=== PATIENT | male | born 1975 | race Caucasian/White ===

== ENCOUNTER 2016-11-04 19:15 | Emergency (ER) | payer SELFPAY ==
[2016-11-04 19:47] VITALS: BP 162/97
[2016-11-04] MEDS ORDERED: Azithromycin 250 MG Tab PO ONE (21:17)
--- NOTE | 2016-11-04 21:17 | EDM.PDOC ---
ED HISTORY OF PRESENT ILLNESS - General Chief Complaint: Respiratory Problem Stated Complaint: COUGH/CONGESTION Time Seen by Provider: 11/04/16 19:43 Source of Information: Reports: Patient - History of Present Illness INITIAL COMMENTS - FREE TEXT/NARRATIVE: 41 year old male with cough for about 4 days, worse the past 2 days, this evening got coughing so hard he "passed out". has had some chills, no definite fever. sore scratchy throat. Nasal and sinus kor[place] worse yesterday. Cough mostly dry but at time productive. Has had prior angiogram, "no blockage" He does not smoke. - Related Data Allergies/ADRs: Allergies Allergy/AdvReac Type Severity Reaction Status Date / Time cefuroxime axetil Allergy Cannot Verified 02/02/16 22:33 CDT [From Ceftin] Remember cephalexin Allergy Cannot Verified 02/02/16 22:03 CDT Remember Penicillins Allergy Cannot Verified 02/02/16 22:03 CDT Remember Past Medical History Cardiovascular History: Reports: Heart Failure, Hypertension Respiratory History: Reports: Sleep apnea Other Respiratory History: "Dx in 2010. Not treated because provider said it is not bad enough." Gastrointestinal History: Reports: GERD Genitourinary History: Reports: Renal calculus Musculoskeletal History: Reports: Arthritis Neurological History: Reports: Concussion, Migraines Other Neuro History: "I've had massive concussions before" - Infectious Disease History Infectious Disease History: Reports: Chicken pox - Past Surgical History Head Surgeries/Procedures: Reports: None HEENT Surgical History: Reports: Tonsillectomy Cardiovascular Surgical History: Reports: Other (see below) Other Cardiovascular Surgeries/Procedures: Angiogram done 11/23 Neurological Surgical History: Reports: None Musculoskeletal Surgical History: Reports: Shoulder surgery, Other (see below) Other Musculoskeletal Surgeries/Procedures:: bicept detatchment Social & Family History - Family History Cardiac: Reports: CAD, Hypertension, Pacemaker, Stent Other Cardiac Family History: Very strong family history of heart problems starting in the 30's for men in his family. Endocrine/Metabolic: Reports: Diabetes, type II - Tobacco Use Smoking Status *Q: Never Smoker Years of Tobacco use: 3 Packs/Tins Daily: 0.2 Used Tobacco, but Quit: Yes Month Tobacco Last Used: 1.5 Second Hand Smoke Exposure: No - Caffeine Use Caffeine Use: Reports: None - Recreational Drug Use Recreational Drug Use: No ED ROS GENERAL - Review of Systems Review Of Systems: See Below Constitutional: Denies: fever, chills, diaphoresis HEENT: Reports: Sinus problem (nasal and sinus korina. ), Throat pain Respiratory: Reports: Cough, Sputum. Denies: Shortness of Breath, Wheezing, Pleuritic Chest Pain Cardiovascular: Reports: Chest pain (with coughing) GI/Abdominal: Denies: Abdominal pain, Nausea, Vomiting Musculoskeletal: Reports: other (achiness) Skin: Denies: rash Neurological: Reports: Headache. Denies: Weakness ED EXAM, GENERAL - Physical Exam Exam: See Below General Appearance: alert, no apparent distress Eye Exam: bilateral eye: PERRL Nose: normal inspection Throat/Mouth: Normal inspection, Normal oropharynx Head: atraumatic. No: facial swelling Neck: supple, full range of motion. No: lymphadenopathy (L), lymphadenopathy (R ) Respiratory/Chest: no respiratory distress, lungs clear, normal breath sounds. No: rhonchi, wheezing, stridor Cardiovascular: tachycardia GI/Abdominal: soft, non tender Extremities: No: pedal edema, leg pain, increased warmth Neurological: alert, oriented, no motor/sensory deficits EKG INTERPRETATION EKG Date: 11/04/16 Rhythm: other (sinus tach) [place]: normal P-wave: present QRS: normal ST-T: normal Course - Vital Signs Last Recorded V/S: Last Vital Signs Temp 100.7 F H 11/04/16 19:37 Pulse 106 H 11/04/16 19:37 Resp 22 H 11/04/16 19:37 BP 162/97 H 11/04/16 19:37 Pulse Ox 96 11/04/16 19:37 - Orders/Labs/Meds Orders: Active Orders 24 hr Category Date Time Status EKG 12 Lead [EKG Documentation Completion] [RC] STAT Care 11/04/16 20:19 Active Chest 1V Frontal [CR] Stat Exams 11/04/16 20:18 Taken Labs: Laboratory Tests 11/04/16 11/04/16 Range/Units 19:48 19:48 WBC 7.93 (4.23-9.07) K/mm3 RBC 4.83 (4.63-6.08) M/mm3 Hgb 14.8 (13.7-17.5) gm/L Hct 41.7 (40.1-51.0) % MCV 86.3 (79.0-92.2) fl MCH 30.6 (25.7-32.2) pg MCHC 35.5 (32.2-35.5) g/dl RDW Std Deviation 38.0 (35.1-43.9) fL Plt Count 217 (163-337) K/mm3 MPV 10.0 (9.4-12.3) fl Neut % (Auto) 67.3 (34.0-67.9) % Lymph % (Auto) 22.7 (21.8-53.1) % [place] % (Auto) 6.8 (5.3-12.2) % Eos % (Auto) 2.4 (0.8-7.0) Baso % (Auto) 0.5 (0.1-1.2) % Neut # (Auto) 5.34 (1.78-5.38) K/mm3 Lymph # (Auto) 1.80 (1.32-3.57) K/mm3 [place] # (Auto) 0.54 (0.30-0.82) K/mm3 Eos # (Auto) 0.19 (0.04-0.54) K/mm3 Baso # (Auto) 0.04 (0.01-0.08) K/mm3 Troponin I < 0.017 (0.00-0.056) ng/mL Meds: Medications Discontinued Medications Generic Name Dose Route Start Last Admin Trade Name Freq PRN Reason Stop Dose Admin Azithromycin 500 mg 11/04/16 21:17 11/04/16 21:24 Zithromax PO 11/04/16 21:18 500 mg ONETIME ONE Administration - Re-Assessments/Exams Free Text/Narrative Re-Assessment/Exam: 11/04/16 22:07 CXR is good, influenza screen neg, WBC nl, trop neg. Departure - Departure Time of Disposition: 21:24 Disposition: Home, Self-Care 01 Condition: fair Clinical Impression: Bronchitis Syncope Qualifiers: Syncope type: unspecified Qualified Code(s): R55 - Syncope and collapse Instructions: Syncope, [id number], Acute Bronchitis Referrals: PCP,None [Primary Care Provider] - Forms: ED Department Discharge Additional Instructions: rest as best you can, vaporizer or steam as needed, drink plenty of water, you have been given your first dose of zithromax tonight, fill script in the morning and continue that daily until gone, follow up clinic if not much better within 5 to 7 days as expected, return to ED as needed - My Orders Last 24 Hours: My Active Orders 11/04/16 20:18 Chest 1V Frontal [CR] Stat 11/04/16 20:19 EKG 12 Lead [EKG Documentation Completion] [RC] STAT - Assessment/Plan Last 24 Hours: My Active Orders 11/04/16 20:18 Chest 1V Frontal [CR] Stat 11/04/16 20:19 EKG 12 Lead [EKG Documentation Completion] [RC] STAT
--- NOTE | 2016-11-05 08:33 | CR ---
Chest: Portable view of the chest was obtained. Comparison: No previous study. Heart size and mediastinum are normal. Lungs are clear. Bony structures are grossly intact. Impression: 1. Nothing acute is identified on portable chest x-ray. Diagnostic code #1
== END 2016-11-04 21:43 | disposition home or self-care (01) ==
LOC: MERGE 19:15 → JD.ED 19:15
DX: J40 Bronchitis, not specified as acute or chronic (principal); R55 Syncope and collapse; I11.0 Hypertensive heart disease with heart failure; I50.9 Heart failure, unspecified; G47.30 Sleep apnea, unspecified; Z98.890 Other specified postprocedural states; Z87.891 Personal history of nicotine dependence; Z88.0 Allergy status to penicillin; Z88.1 Allergy status to other antibiotic agents
CPT/HCPCS: 36415; 71010; 84484; 85025; 87804; 93005; 99284; A9270; 99285